=== PATIENT | female | born 1945 | race Caucasian/White ===

== ENCOUNTER 2020-02-21 15:14 | Inpatient (IN) | payer MEDICARE, MEDICAID ==
[2020-02-21] VITALS (7 sets, daily range): BP systolic 134–146; BP diastolic 49–66
[~2020-02-21] VITALS: Ht 157.4 cm; Wt 75.7 kg
[~2020-02-21 15:14] MED LIST: ALEVE220 M1 PO; AMOXICILLIN500 MG PO; ATIVAN1 MG PO; KENALOG0.1% TP; PREDNICOT20 MG PO; PROAIR HFA0.09 MG/AC INH; ROBITUSSIN AC 110 ML PO; Tessalon Perle100 MG PO; VIBRAMYCIN100 MG PO; VISTARIL25 M1 PO
[2020-02-21 15:46] LABS: BASO % 0.6 % (0.0-1.0); EOS # 0.6 10*3/uL (0.0-0.4); EOS % 9.4 % (1.0-4.0); HEMATOCRIT 35.1 % (37.0-47.0); LYMPH % 16.2 % (27.0-41.0); MEAN CELL VOLUME 95.6 fl (81.0-99.0); MEAN CORPUSCULAR HGB 29.4 pg (27.0-31.0); MEAN CORPUSCULAR HGB CONC 30.8 g/dl (33.0-37.0); MEAN PLATELET VOLUME 10.3 fl (9.6-12.3); MONO # 0.6 10*3/uL (0.1-1.0); MONO % 8.7 % (3.0-9.0); NEUT # 4.1 10*3/uL (2.3-7.9); NEUT % 64.8 % (47.0-73.0); PLATELET COUNT AUTOMATED 125 10*3/uL (130-400); RED BLOOD COUNT 3.67 10*6/uL (4.10-5.10); RED CELL DISTRI WIDTH 13.3 % (0-14.5); WHITE BLOOD COUNT 6.3 10*3/uL (4.8-10.8)
[2020-02-21 15:59] LABS: ACT PARTIAL THROMBO TIME 28.9 SECONDS (20.0-32.1)
[2020-02-21 16:07] LABS: ALBUMIN 3.5 gm/dl (3.1-4.5); CREATININE 1.94 mg/dL (0.55-1.02); POTASSIUM 3.8 mmol/L (3.5-5.1); TOTAL PROTEIN 7.8 gm/dL (6.4-8.2)
[2020-02-21 16:09] LABS: TROPONIN I 0.058 ng/ml (<0.045)
--- NOTE | 2020-02-21 21:43 | NUR ---
PT INCONTINENT OF URINE AT THIS TIME. THIS RN CLEANED AND CHANGED PT AND LINENS. REPOSITIONED PT.
--- NOTE | 2020-02-21 23:00 | NUR ---
A 75, admitted to 4E, under the services of DEMETRIUS Randle DO with a diagnosis of ACUTE RESPIRATORY FAILURE. Chief complaint is SHORTNESS OF BREATH. Patient arrived via stretcher from ER. Monitor applied. Initial assessment completed. Vital signs taken and recorded. DEMETRIUS RANDLE DO notified of admission to the unit. Orders received. See assessment for past medical history, medications and allergies. Patient and/or family oriented to unit. visitation policy reviewed. Clothing/patient valuable form completed. MONTANA ZAYAS
--- NOTE | 2020-02-21 23:15 | NUR ---
PATIENT STATING SHE CAN'T BREATHE. PULSE OX 100% ON 4 LITERS. DOES NOT WEAR OXYGEN AT HOME. AUDIBLE RHONCHI AND WHEEZES THROUGHOUT.
--- NOTE | 2020-02-21 23:15 | NUR ---
MEDICATED WITH PRN TYLENOL FOR INCREASED TEMP, HEADACHE, AND BODY ACHES.
[2020-02-21] MEDS ORDERED: FUROSEMIDE20 M1 PO (23:34)
[2020-02-21] MEDS ORDERED: PANTOPRAZOLE SO40 MG PO (23:35)
[2020-02-21] MEDS ORDERED: REQUIP2 MG PO (23:35)
[2020-02-21] MEDS ORDERED: METOPROLOL25 MG PO (23:35)
[2020-02-21] MEDS ORDERED: LEVOTHYROXINE50 MCG PO (23:36)
[2020-02-21] MEDS ORDERED: POTASSIUM CHLO20 ME4 PO (23:39)
[2020-02-21] MEDS ORDERED: OXYBUTYNIN5 MG PO (23:39)
--- NOTE | 2020-02-21 23:44 | NUR ---
DR REYNOLDS AWARE OF LUNG SOUNDS, VITALS, MED REC BEING DONE, AND COMPLAINING OF SHORTNESS OF BREATH.
--- NOTE | 2020-02-21 23:46 | NUR ---
ALSO MADE DR REYNOLDS AWARE OF WOUNDS ON LEGS AND COCCYX
--- NOTE | 2020-02-22 00:13 | NUR ---
MEDICATED WITH ONE TIME ATIVAN PER ORDER
--- NOTE | 2020-02-22 00:15 | NUR ---
MEDICATION EFFECTIVE FOR TEMPERATURE
--- NOTE | 2020-02-22 01:13 | NUR ---
PATIENT SLEEPING WITH EASY RESPIRATIONS. MEDICATION SEEMS EFFECTIVE
[2020-02-22 06:22] LABS: BASO % 0.4 % (0.0-1.0); EOS # 0.1 10*3/uL (0.0-0.4); EOS % 1.6 % (1.0-4.0); HEMATOCRIT 31.5 % (37.0-47.0); LYMPH # 0.5 10*3/uL (1.3-4.4); LYMPH % 9.2 % (27.0-41.0); MEAN CELL VOLUME 95.5 fl (81.0-99.0); MEAN CORPUSCULAR HGB 29.7 pg (27.0-31.0); MEAN CORPUSCULAR HGB CONC 31.1 g/dl (33.0-37.0); MEAN PLATELET VOLUME 10.7 fl (9.6-12.3); MONO # 0.1 10*3/uL (0.1-1.0); MONO % 2.2 % (3.0-9.0); NEUT # 4.3 10*3/uL (2.3-7.9); NEUT % 86.4 % (47.0-73.0); PLATELET COUNT AUTOMATED 120 10*3/uL (130-400); RED CELL DISTRI WIDTH 13.4 % (0-14.5)
[2020-02-22 06:45] LABS: ALBUMIN 3.1 gm/dl (3.1-4.5); CREATININE 2.01 mg/dL (0.55-1.02); TOTAL PROTEIN 7.6 gm/dL (6.4-8.2)
[2020-02-22 07:45] LABS: VITAMIN D, 25-HYDROXY 49.8 ng/mL (30-100)
[2020-02-22 07:46] LABS: FERRITIN 636.7 ng/mL (10.0-291.0)
[2020-02-22 08:00] VITALS: BP 122/50
--- NOTE | 2020-02-22 08:53 | NUR ---
NOTIFIED OF BRADYCARDIA
--- NOTE | 2020-02-22 10:07 | NUR ---
Occupational therapy order and nursing screen received. Will follow up with patient for completion of an OT evaluation. Thank you. Muriel Augustine, OTR/L
[2020-02-22 11:31] LABS: ABG BASE EXCESS 7.7 mmol/L (-2.0-2.0); ARTERIAL BLOOD GAS PH 7.417 (7.35-7.45)
[2020-02-22 12:00] VITALS: BP 128/54
--- NOTE | 2020-02-22 12:26 | NUR ---
Structural Steel Erector in to talk to patient. Patient states lives at home with daughter. There are no steps in the home. Physician: marilin sinclair Pharmacy: [facility] health services: none at present Patient's level of ADLs: MINIMAL ASSIST Patient has working utilities: all working DME: wheelchair, walker Follow-up physician's appointment after d/c: will be made by hospitalist nurse director upon discharge Does patient want to access PORTAL?: no Discharge plan discussed with patient, she states she lives at home with her daughter, she is independent in adls and has recently been using a wheelchair for ambulation, no home oxygen, she states she would like to return home when discharged. discussed with her [facility] and educated her on the services they provide, she was receptive to this, given choice of companies she chose [facility], will send a referral to [facility] for when she is discharged, case management will follow. GREY HICKS
--- NOTE | 2020-02-22 14:59 | NUR ---
Occupational Therapy evaluation completed on four with full evaluation to follow. Recommend occupational therapy per plan of care and SNF upon discharge. Thank you for this referral. Muriel Augustine OTR/L
--- NOTE | 2020-02-22 15:00 | NUR ---
PHYSICAL THERAPY Physical Therapy evaluation completed on 4th floor with full evaluation to follow. Recommend physical therapy per plan of care and SNF upon discharge. Thank you for this referral. Roxi Malik PT
[2020-02-22 16:00] VITALS: BP 108/50; BP 94/49
--- NOTE | 2020-02-22 19:31 | NUR ---
PATIENT MEDICATED WITH TYLENOL FOR C/O PAIN IN LEGS. MOVED FROM CHAIR TO BED. TOLERATED WELL. BED IN LOWEST POSITION, CALL LIGHT IN REACH
[2020-02-22 20:00] VITALS: BP 104/44
[2020-02-23] VITALS: BP 104/44; BP 132/59
[2020-02-23 06:15] LABS: HEMATOCRIT 29.5 % (37.0-47.0); LYMPH # 0.9 10*3/uL (1.3-4.4); LYMPH % 14.8 % (27.0-41.0); MEAN CELL VOLUME 94.2 fl (81.0-99.0); MEAN CORPUSCULAR HGB 29.4 pg (27.0-31.0); MEAN CORPUSCULAR HGB CONC 31.2 g/dl (33.0-37.0); MEAN PLATELET VOLUME 10.8 fl (9.6-12.3); MONO # 0.5 10*3/uL (0.1-1.0); MONO % 8.5 % (3.0-9.0); NEUT # 4.7 10*3/uL (2.3-7.9); NEUT % 76.4 % (47.0-73.0); PLATELET COUNT AUTOMATED 140 10*3/uL (130-400); RED BLOOD COUNT 3.13 10*6/uL (4.10-5.10); RED CELL DISTRI WIDTH 13.3 % (0-14.5); WHITE BLOOD COUNT 6.1 10*3/uL (4.8-10.8)
[2020-02-23 06:22] LABS: CREATININE 2.07 mg/dL (0.55-1.02); POTASSIUM 3.9 mmol/L (3.5-5.1); TOTAL PROTEIN 7.1 gm/dL (6.4-8.2)
--- NOTE | 2020-02-23 07:38 | NUR ---
PHYSICAL THERAPY PT eval and screen received pt has been evaluated and is on caseload thank you Roxi Malik PT
[2020-02-23 08:00] VITALS: BP 102/44; BP 128/82
--- NOTE | 2020-02-23 09:00 | NUR ---
case management talks with patient, she states she will return home when discharged, she is currently on 4l of oxygen, she does not have home oxygen, she also would like [facility] to follow her at home, case management will notify [facility] when patient is discharged
[2020-02-23 12:00] VITALS: BP 115/43
--- NOTE | 2020-02-23 13:21 | NUR ---
OT NOTE Pt was seen this P.M. 1:1 for 30 minute OT session. Upon arrival pt was supine in bed. Pt identified by name and and had complaints of 5/10 B foot pain. Pt transferred supine to sit EOB with Saira for assist with upper body. While sitting EOB requested for pt to venessa B socks and she was unable reporting that she uses a bottle label inspector at home. Pt's socks were donned with maxA. Sit to stand completed from bed level with Saira X 2 and use of w/w for UE support. Challenged pt's static standing tolerance needed for increased I in self care tasks and functional transfers. Pt was able to tolerate aprox 2-3 minutes at a time before sitting due to fatigue. She then completed standing pivot from the EOB to the bedside commode with Saira X 2 and use of w/w. There she transferred on to the bedside commode with CGA and off with Saira x 2. Functional mobility completed from the EOB to the recliner with Saira X 2 and use of w/w, aprox 50% of the way to the chair pt had quick onset of fatigue resulting in modA X 2 and a seated rest break. After her seated rest break functional mobility completed to the recliner with Saira X 2 and use of w/w. While seated in the recliner Pt completed AROM to BUE's over all planes for 1 X 10 to point of tolerance. Pt was left sitting reclined in the recliner with call light in hand, tray table in place, and phone in reach. Continue with rec D/C plan to SNF. KRISHNA Marmolejo
--- NOTE | 2020-02-23 14:39 | NUR ---
PHYSICAL THERAPY Patient presented to therapy in supine in bed with head of bed elevated and bed alarm on. Patient gives informed consent for treatment. Patient was identified by name and on wristband. Patient has a pain level in bilateral feet of 5/10. Patient is on 4 liters of spO2 VIA NASAL CANULA. Patient performed supine to sitting on EOB with MIN A X 1. Patient sat on EOB with SBA. Patient completed sit to stand from EOB with MIN A X 2. Patient stood at Walker with CGA X 2. Patient ambulated with Walker and CGA for 10' x 1 and then had ot sit in chair pulled up behind her because her LEs were weak. Patient sat in chair with MIN A X 1. Patient STS from low chair with MIN A X 1. Patient ambulated the remainder of the distance 8' x 1 with Walker and CGA to the bedside chair where she sat with MIN A X 1. Patient performed seated bilateral LE THER EX x 10 reps each in all planes of movement including LAQs, marches, heel/toe raises hip abduction and pillow sqeezes for strengthening in orde to improve functional mobility. Patient was left in bedside chair with call light within reach, chair alarm tested and attached to patient and LEs in low position. Patient treatment was witnessed by DORI CARBONE. Patient was 1:1 with this WELDING MACHINE OPERATOR ULTRASONIC for 22 minutes total. PPE AND PAPR DONNED AND DOFFED PER PROTOCOL. LEXIE LEE WELDING MACHINE OPERATOR ULTRASONIC
[2020-02-23 16:00] VITALS: BP 122/57
--- NOTE | 2020-02-23 18:23 | NUR ---
PT MEDICATED WITH CEPECOL FOR C/O A COUGH
[2020-02-23 20:00] VITALS: BP 118/49
[2020-02-24] VITALS: BP 115/45
--- NOTE | 2020-02-24 02:14 | NUR ---
NOTIFIED RESPIRATORY OF PATIENT REQUESTING BREATHING TREATMENT
--- NOTE | 2020-02-24 02:31 | NUR ---
PATIENT STATES SHE FEELS BETTER AFTER A BREATHING TREATMENT.
[2020-02-24 06:04] LABS: ALBUMIN 3.2 gm/dl (3.1-4.5); CREATININE 2.23 mg/dL (0.55-1.02); POTASSIUM 3.5 mmol/L (3.5-5.1); TOTAL PROTEIN 7.3 gm/dL (6.4-8.2)
[2020-02-24 06:09] LABS: LYMPH # 0.4 10*3/uL (1.3-4.4); LYMPH % 7.4 % (27.0-41.0); MEAN CELL VOLUME 94.5 fl (81.0-99.0); MEAN CORPUSCULAR HGB 29.3 pg (27.0-31.0); MEAN PLATELET VOLUME 11.2 fl (9.6-12.3); MONO # 0.3 10*3/uL (0.1-1.0); MONO % 4.6 % (3.0-9.0); NEUT % 87.5 % (47.0-73.0); PLATELET COUNT AUTOMATED 176 10*3/uL (130-400); RED BLOOD COUNT 3.28 10*6/uL (4.10-5.10); RED CELL DISTRI WIDTH 13.3 % (0-14.5); WHITE BLOOD COUNT 5.7 10*3/uL (4.8-10.8)
--- NOTE | 2020-02-24 07:31 | NUR ---
INSTRUCTIONAL TECHNOLOGY SPECIALIST NOTIFIED RN HOSPITALIST COORDINATOR CHRISTOPH OF NEEDING A HOME HEALTH ORDER FOR [facility] AND A FACE TO FACE.
--- NOTE | 2020-02-24 09:20 | NUR ---
VALET PARKING ATTENDANT FAXED REFERRAL/FACE TO FACE TO [facility]. WILL NOTIFY THEM WHEN THE PATIENT DISCHARGES.
--- NOTE | 2020-02-24 10:47 | NUR ---
Received call from Jovita at [facility] regarding patient's phone number. Spoke to patient via phone regarding her home phone number. She states she doesn't have a phone at this time as it went through the washer and her daughter's phone is broke. She states he PCP is Dr. Cohen in [place], [place]. Notified Jovita at [facility] of the above.
--- NOTE | 2020-02-24 10:56 | NUR ---
DRESSINGS CHANGED PER PHYSICIAN'S ORDER. PATIENT TOLERATED DRESSING CHANGE WELL. PATIENT DENIED ANY NEEDS BEFORE THIS NURSE LEFT ROOM.
--- NOTE | 2020-02-24 11:42 | NUR ---
DR. MCCLURE'S OFFICE NOTIFIED OF CONSULT.
[2020-02-24 12:00] VITALS: BP 128/64
[2020-02-24 12:39] LABS: POTASSIUM 3.7 mmol/L (3.5-5.1)
--- NOTE | 2020-02-24 13:40 | NUR ---
OT NOTE Pt was seen this P.M. 1:1 for 20 minute OT session. Upon arrival pt was supine in bed. Pt identified by name and and had complaints of 8/10 B foot pain. Pt presented to therapy with continuous 3L-O2 via NC which she remained on throughout the entire session. Pt transferred supine to sit EOB with Saira for assist with upper body. Sit to stand completed from bed level with Saira and use of w/w for UE support. Challenged pt's static standing tolerance needed for incrased I in self care tasks and functional transfers. Pt was able to tolerate aprox 60 seconds at a time before sitting due to fatigue. Standing pivot completed from the EOB to the recliner with Saira and use of w/w, pt had one LOB throughout that required modA to correct and upon arrival to the chair pt sat impulsive before safety with alignment. Once seated in the chair pt completed BUE AROM over all planes for 1 X 10 to increase and restore maximum functional use. Pt was left sitting reclined in the recliner with call light in hand, tray table in place, and phone in reach. Continue with rec D/C plan to SNF. DORI Marmolejo/Gregg
--- NOTE | 2020-02-24 14:40 | NUR ---
PHYSICAL THERAPY Patient presented to therapy in supine in bed with head of bed elevated and no longer in isolation for COVID- 19. Patient gives informed consent for treatment. Patient was identified by name and on wristband. Patient complaints of 8/10 pain in the bilateral feet. Patient performed supine to sitting on EOB with MIN A X 1. Patient sat on EOB with SBA. Patient STS from EOB with MIN A X 1. Patient ambulated 4 ft with Walker and CGA with bilateral LE becoming very weak with gait causing her need to sit on chair that was pulled up behind her. Patient sat in bedside chair and performed bilateral LE ther ex 2 x 10 reps each in all planes of movement for strengthening. Patient attempted 1 sit to stand out of low chair and required MIN A X 1 to assist out of chair. Patient was left in bedside chair with call light within reach and LEs elevated. Patient was 1:1 with this DENTAL TECHNOLOGIST for 20 minutes total. LEXIE LEE DENTAL TECHNOLOGIST
[2020-02-24 16:00] VITALS: BP 131/51
[2020-02-24 20:00] VITALS: BP 122/58
[2020-02-25] VITALS: BP 100/60
--- NOTE | 2020-02-25 | NUR ---
Patient resting quietly with no c/o discomfort. Respirations easy and regular. Vital signs stable. No overt distress. HEAVEN MERLOS
[2020-02-25 06:50] LABS: BASO % 0.1 % (0.0-1.0); HEMATOCRIT 30.5 % (37.0-47.0); LYMPH # 0.8 10*3/uL (1.3-4.4); MEAN CELL VOLUME 94.1 fl (81.0-99.0); MEAN CORPUSCULAR HGB 29.3 pg (27.0-31.0); MEAN CORPUSCULAR HGB CONC 31.1 g/dl (33.0-37.0); MEAN PLATELET VOLUME 10.9 fl (9.6-12.3); MONO # 0.2 10*3/uL (0.1-1.0); MONO % 3.2 % (3.0-9.0); NEUT # 5.8 10*3/uL (2.3-7.9); PLATELET COUNT AUTOMATED 192 10*3/uL (130-400); RED BLOOD COUNT 3.24 10*6/uL (4.10-5.10); RED CELL DISTRI WIDTH 13.4 % (0-14.5); WHITE BLOOD COUNT 6.8 10*3/uL (4.8-10.8)
[2020-02-25 07:16] LABS: CREATININE 2.39 mg/dL (0.55-1.02); POTASSIUM 3.9 mmol/L (3.5-5.1)
--- NOTE | 2020-02-25 07:40 | NUR ---
OCCUPATIONAL THERAPY CO-SIGN I approve of the Occupational Therapy notes written above. FARIDA MIRANDA, OTR/L
[2020-02-25 08:00] VITALS: BP 123/52
--- NOTE | 2020-02-25 10:25 | NUR ---
Pt cleared for therapy by RN. Pt reports c/o fatigue. Pt lying supine with head of bed elevated and bed alarm on. Assist to venessa mask due to limited UE rom. Pt performs supine ankle pumps x 30, SLR 2x10. Transfers supine to sit with Saira and BUE pulling on hand rails. Seated LAQ 2 x 10. Transfers sit to supine without assist. Requires assist with bed adjustments to elavate head due to arm and hand weakness. All needs met and bed alarm on. Kerwin Steele,KAYAKING INSTRUCTOR
--- NOTE | 2020-02-25 10:59 | NUR ---
case management received a message that patient has chosen to go to a short term long-term for 5 days of rehab and 24 hour care prior to returning home, discussed this with patient, she stated she thought about going to a SNF and has decided she is returning home instead. re educated her on the services provided at a SNF and that physical therapy has recommended she go for therapy prior to returning home. again she stated she would be returning home with her daughter and her grandaughter. she would like to have [facility] follow her at home. case management will notify [facility] when patient is discharged
--- NOTE | 2020-02-25 12:35 | NUR ---
OT NOTE Pt was seen this P.M. 1:1 for 25 minute OT session. Upon arrival pt was supine in bed. Pt identified by name and and had complaints of 6.5/10 B feet pain and 10/10 upper back pain while coughing. Pt transferred supine to sit EOB with Saira for assist with upper body. While sitting EOB pt was educated and demonstrated on use of securities supervisor and sock aid. Pt attempted to venessa B socks with use of the equipment and pt was unable resulting in maxA. Pt completed multiple sit to stand transfers from bed level with modA. Challenged pt's static standing tolerance needed for increased I in self care tasks and functional transfers. Pt was able to tolerate aprox 20-25 seconds at a time before sitting due to fatigue. Throughout static standing pt's R knee was blocked due to multiple episodes of R knee buckle. Pt then completed standing pivot from the EOB to the Recliner with modA. While seated pt completed AROM over all planes to BUE's for 1 X 10 to increase and restore maximum functional use. Pt was left sitting reclined in the recliner with call light in hand, tray table in place, and phone in reach. Continue with rec D/C plan to SNF. DORI Marmolejo/Gregg
--- NOTE | 2020-02-25 14:55 | NUR ---
[facility] IS SET TO SEE THE PATIENT ON FRIDAY, UNLESS DISCHARGE IS HELD.
--- NOTE | 2020-02-25 15:21 | NUR ---
PHYSICAL THERAPY CO-SIGN I approve of the Phyical Therapy notes written above. Roxi Malik PT
--- NOTE | 2020-02-25 15:32 | NUR ---
OCCUPATIONAL THERAPY CO-SIGN I approve of the Occupational Therapy notes written above. FARIDA MIRANDA, OTR/L
[2020-02-25 16:00] VITALS: BP 125/41
--- NOTE | 2020-02-25 16:21 | NUR ---
DR. SAENZ NOTIFIED OF PATIENT'S INCONTINENCE. 24 URINE CANCELLED. ORDER FOR STRAIGHT CATH TO COLLECT OTHER URINE SPECIMENS.
--- NOTE | 2020-02-25 16:22 | NUR ---
STRAIGHT CATH UNSUCCESSFUL. CATHETER WILL NOT PROCEED INTO URETHRA. PT STATES PROCEDURE IS VERY PAINFUL. PT STATES SHE WILL DRINK SOME WATER AND THEN TRY TO SIT ON BSC WITH HAT.
[2020-02-25 18:38] LABS: BILIRUBIN Negative (Negative); BLOOD 1+ (Negative); CLARITY Cloudy (Clear); COLOR Yellow (Yellow); GLUCOSE Negative (Negative); KETONE Negative (Negative); LEUKO ESTERASE 1+ (Negative); NITRITE Negative (Negative); UROBILINOGEN 0.2 E.U./dl (0.0-1.0)
[2020-02-25 18:46] LABS: URINE CREATININE RANDOM 90.7 mg/dL
[2020-02-25 18:53] LABS: RBC 0-2 rbc/hpf (0-2)
[2020-02-25 18:54] LABS: BACTERIA 2+
[2020-02-25 20:00] VITALS: BP 125/67
--- NOTE | 2020-02-25 20:00 | NUR ---
PATIENT RESTING IN BED. RESPIRATIONS EASY, NON LABORED. VOICES NO COMPLAINTS. WILL CONTINUE TO MONITOR.
[2020-02-26] VITALS: BP 122/58
--- NOTE | 2020-02-26 04:00 | NUR ---
PATIENT SLEEPING. NO SIGNS OF DISTRESS. WILL CONTINUE TO MONITOR.
[2020-02-26 06:10] LABS: TOTAL PROTEIN, SERUM 6.7 g/dL (6.0-8.5)
[2020-02-26 08:00] VITALS: BP 116/64
[2020-02-26 09:35] LABS: HEMATOCRIT 29.2 % (37.0-47.0); LYMPH # 0.8 10*3/uL (1.3-4.4); LYMPH % 16.1 % (27.0-41.0); MEAN CELL VOLUME 95.1 fl (81.0-99.0); MEAN CORPUSCULAR HGB CONC 31.5 g/dl (33.0-37.0); MEAN PLATELET VOLUME 10.9 fl (9.6-12.3); MONO # 0.2 10*3/uL (0.1-1.0); MONO % 4.4 % (3.0-9.0); NEUT # 3.9 10*3/uL (2.3-7.9); NEUT % 78.9 % (47.0-73.0); PLATELET COUNT AUTOMATED 188 10*3/uL (130-400); RED BLOOD COUNT 3.07 10*6/uL (4.10-5.10); RED CELL DISTRI WIDTH 13.6 % (0-14.5)
[2020-02-26 10:01] LABS: CREATININE 1.92 mg/dL (0.55-1.02); POTASSIUM 4.3 mmol/L (3.5-5.1)
[2020-02-26 12:00] VITALS: BP 129/70
[2020-02-26 16:00] VITALS: BP 141/60
[2020-02-26 20:00] VITALS: BP 142/60
--- NOTE | 2020-02-26 20:57 | NUR ---
TYLENOL GIVEN FOR C/O SACRAL PAIN, PATIENT REPOSITIONED AT THIS TIME. WOUND CARE COMPLETED PER ORDERS. WILL CONT TO LORI.
[2020-02-27] VITALS: BP 135/52
--- NOTE | 2020-02-27 01:45 | NUR ---
PATIENT BATHED AND DIANA CARE PROVIDED. CALL LIGHT IN REACH, BED IN LOW, LOCKED POSITION.
--- NOTE | 2020-02-27 05:00 | NUR ---
Shift chart check completed.
[2020-02-27 06:34] LABS: ALBUMIN 2.8 gm/dl (3.1-4.5); CREATININE 1.87 mg/dL (0.55-1.02); POTASSIUM 4.3 mmol/L (3.5-5.1); TOTAL PROTEIN 6.4 gm/dL (6.4-8.2)
[2020-02-27 08:00] VITALS: BP 139/54
--- NOTE | 2020-02-27 08:32 | NUR ---
24 HR chart check completed.
--- NOTE | 2020-02-27 09:00 | NUR ---
RESTING IN BED WITH NO ACUTE DISTRESS NOTED. RESPIRATIONS EASY. LUNGS DIMINISHED WITH COARSE EXP WHEEZES. PULSE OX 96% RA. NON-PROD COUGH. SCRATCHES NOTED TO BLE. CALL LIGHT WITHIN REACH. NO VOICED COMPLAINTS. BED ALARM MAINTAINED FOR SAFETY
--- NOTE | 2020-02-27 10:19 | NUR ---
REQUESTED AND RECEIVED TYLENOL PER PRN ORDER FOR COMPLAINTS OF BLE PAIN RATING A 6. CALL LIGHT WITHIN REACH. WILL MONITOR
--- NOTE | 2020-02-27 11:00 | NUR ---
STATES RELIEF FROM EARLIER MEDS. CALL LIGHT WITHIN REACH. NO FURTEHR VOICED COMPLAINTS
[2020-02-27 12:00] VITALS: BP 135/55
--- NOTE | 2020-02-27 12:00 | NUR ---
HEEL PROTECTORS PLACED PER ORDER.
[2020-02-27 16:00] VITALS: BP 139/51
--- NOTE | 2020-02-27 17:02 | NUR ---
REQUESTED AND RECEIVED TYLENOL PER PRN ORDER FOR COMPLAINTS OF BLE PAIN RATING A 6. CALL LIGHT WITHIN REACH. WILL MONITOR FOR EFFECTIVENESS
--- NOTE | 2020-02-27 17:30 | NUR ---
PER PATIENT, SHE HAS SPOKE WITH DAUGHTER. ATTEMPTED TO REACH DAUGHTER MORELIA AT [phone] BUT UNABLE. PER PATIENT, DAUGHTER AWARE OF LIKELY D/C 02/27 AND WILL HAVE TRANSPORTATION
--- NOTE | 2020-02-27 17:56 | NUR ---
STATES RELIEF FROM EARLIER MEDS, RESTING IN BED WITH NO ACUTE DISTRESS NOTED. RESPIRATIONS EASY. CALL LIGHT WITHIN REACH. BED ALARM MAINTAINED FOR SAFETY
--- NOTE | 2020-02-27 19:00 | NUR ---
REPORT RECEIVED. PT LYING IN BED. NO COMPLAINTS. CALL LIGHT IN REACH
[2020-02-27 20:13] VITALS: BP 120/58
--- NOTE | 2020-02-27 21:00 | NUR ---
IN TO SEE PT, NO COMPLAINTS. MEDICATIONS GIVEN, TOLERATED WELL. CALL LIGHT IN REACH OF PT
--- NOTE | 2020-02-27 23:12 | NUR ---
TYLENOL GIVEN PER ORDER FOR C/O LEG ACHES. WILL MONITOR
[2020-02-28] VITALS: BP 130/52
--- NOTE | 2020-02-28 | NUR ---
TYLENOL APPEARS EFFECTIVE, PT ASLEEP
--- NOTE | 2020-02-28 01:41 | NUR ---
24 HR chart check completed.
--- NOTE | 2020-02-28 03:00 | NUR ---
PT SLEEPING AT THIS TIME.
--- NOTE | 2020-02-28 05:00 | NUR ---
PT BATHED AND REPOSITIONED AT THIS TIME
[2020-02-28 08:00] VITALS: BP 165/62
--- NOTE | 2020-02-28 08:00 | NUR ---
OT NOTE Pt was seen this A.M. 1:1 for 25 minute OT session. Upon arrival pt was supine in bed. Pt identified by name and and had complaints of 8/10 B foot pain. Pt transferred supine to sit EOB with Saira for assist with upper body. While sitting EOB pt attempted to venessa B socks with use of adaptive equipment and pt was unable due to limited UE ROM and poor faculty head strength resulting in maxA to venessa B socks. While sitting EOB pt completed BUE AROM with AAROM to point of tolerance over all planes for 1 X 15 to increase and restore maximum functional use. Sit to stand completed from EOB with modA X 2 and use of w/w for UE support. Functional mobility (aprox 5 foot) completed from the EOB to the recliner with Saira and use of w/w due to bouts of unsteady stance and retrograde LOB. After a seated rest break pt completed multiple sit to stand transfers from chair level with modA X 2 and use of w/w for UE support. Challenged pt's static standing tolerance needed for increased I in self care tasks and functional transfers. Pt was able to tolerate aprox 60-90 seconds before sitting due to fatigue. While sitting into the chair pt required modA due to sitting without reaching back for the armrest. Pt was left sitting reclined in the recliner with call light in hand, tray table in place, and phone in reach. Continue with rec D/C plan to SNF. KRISHNA Marmolejo
[2020-02-28 08:18] LABS: BASO % 0.1 % (0.0-1.0); EOS % 0.3 % (1.0-4.0); HEMATOCRIT 32.2 % (37.0-47.0); LYMPH # 1.2 10*3/uL (1.3-4.4); LYMPH % 17.9 % (27.0-41.0); MEAN CELL VOLUME 93.9 fl (81.0-99.0); MEAN CORPUSCULAR HGB 29.7 pg (27.0-31.0); MEAN CORPUSCULAR HGB CONC 31.7 g/dl (33.0-37.0); MEAN PLATELET VOLUME 10.8 fl (9.6-12.3); MONO # 0.7 10*3/uL (0.1-1.0); MONO % 10.4 % (3.0-9.0); NEUT # 4.8 10*3/uL (2.3-7.9); PLATELET COUNT AUTOMATED 255 10*3/uL (130-400); RED BLOOD COUNT 3.43 10*6/uL (4.10-5.10); RED CELL DISTRI WIDTH 13.6 % (0-14.5); WHITE BLOOD COUNT 6.9 10*3/uL (4.8-10.8)
[2020-02-28 08:27] LABS: CREATININE 1.83 mg/dL (0.55-1.02); POTASSIUM 4.1 mmol/L (3.5-5.1)
--- NOTE | 2020-02-28 08:55 | NUR ---
PHYSICAL THERAPY Patient presented to therapy in supine in bed with head of bed elevated and bed alarm. Patient reports of pain level in the bilateral feet of 8/10. Patient gives informed consent for treatment. Patient was identified by name and on wristband. Patient B/P was 165/62 in R UE. Patient's O2 sat waas recorded as 99% and pulse at 43. Temp NORMAL. Patient has no IVs, no catheter, and no spO2. Patient performed supine to sitting on EOB with SBA. Patient sat on EOB with SBA. Patient completed STS from EOB with MOD A X 2. Patient ambulated 5' x 1 with Wh Walker and CGA x 2 with verbal cues for locking knees into extension and upright posture to prevent knee buckle. Patient sat in bedside chair with CGA and verbal cues for putting hands back on Walker. Patient performed STS out of bedside chair x 3 SEPERATE TIMES WITH MOD A x 2 AND VERBAL CUES FOR PUSHING off of chair with hands. Patient performed seated bilateral LE ther ex in sitting including LAQs, marches, hip abd, heel/toe raises and pillow sqeezes for strengthening the LEs in order to improve patient's functional mobility. Patient was left in bedside chair with chair alarm on, tray table in front of patient and LEs in low position. Call light left within reach of patient. Patient was 1:1 withh this DREDGING INSPECTOR for 22 minutes total. LEXIE LEE DREDGING INSPECTOR
[2020-02-28] MEDS ORDERED: PREDNISONE10 MG PO ×2 (09:43)
[2020-02-28] MEDS ORDERED: OMNICEF300 MG PO ×2 (09:43)
--- NOTE | 2020-02-28 11:11 | NUR ---
SCALLOP CUTTER NOTIFIED OF DISCHARGE. SCALLOP CUTTER SPOKE WITH JANENE BERNARDO. SCALLOP CUTTER ORGINIALLY SET TRANSPORTATION WITH PATIENTS INSURANCE BASED OFF OF PRIOR PT EVAL. HOWEVER, SCALLOP CUTTER REVIEWED RECENT PT NOTE AND PATIENT HAD A DECLINE IN AMBULATION. SCALLOP CUTTER CANCELLED INSURANCE TRANSPORTATION. SCALLOP CUTTER CONTACTED [facility]. THEY ARE RUNNING BEHIND. SCALLOP CUTTER FAXED DEMOGRAPHICS AND MEDICAL NECESSITY (COMPLETED BY JANENE BERNARDO) TO [facility], THEY WILL CONTACT THIS SCALLOP CUTTER BACK WITH A TIME. JANENE BERNARDO IS AWARE. SCALLOP CUTTER CONTACTED PATIENTS DAUGHTER MORELIA, SHE IS AWARE TRANSPORTATION IS PENDING. WILL CALL HER BACK WITH A CONFIRMED TIME FROM [facility].
--- NOTE | 2020-02-28 13:00 | NUR ---
Discharge instructions reviewed with patient/family. Patient receptive and verbalizes understanding. Follow-up care arranged. Written instructions given to patient/family. SAI LINDSEY
[2020-02-28 16:11] LABS: ALBUMIN 3.4 g/dL (2.9-4.4); ALPHA-1-GLOBULIN 0.3 g/dL (0.0-0.4); ALPHA-2-GLOBULIN 0.8 g/dL (0.4-1.0); BETA GLOBULIN 1.1 g/dL (0.7-1.3); GAMMA GLOBULIN 1.2 g/dL (0.4-1.8); GLOBULIN, TOTAL 3.3 g/dL (2.2-3.9); M-SPIKE 0.4 g/dL (Not Observed)
--- NOTE | 2020-02-29 07:40 | NUR ---
OCCUPATIONAL THERAPY CO-SIGN I approve of the Occupational Therapy notes written above. FARIDA MIRANDA, OTR/L
--- NOTE | 2020-02-29 07:54 | NUR ---
PHYSICAL THERAPY CO-SIGN I approve of the Physical Therapy notes written above. Roxi Malik PT
--- NOTE | 2020-02-29 09:51 | NUR ---
PATIENT IS BEING SEEN TOMORROW BY [facility]. CLAIMS REPRESENTATIVE SPOKE WITH [facility].
--- NOTE | 2020-03-06 13:34 | NUR ---
NORTH RECEIVED EMAIL FROM [facility] STATING THIS PATIENT IS BEING SENT TO ER FOR PLACEMENT. NORTH PRINITED REFERRAL FROM LAST ADMISSION AND SENT IT TO [facility]A [facility]KEON FOR REVIEW.
== END 2020-02-28 13:00 | disposition home or self-care (01) | DRG 177 ==
LOC: ED 15:14 → 4E 18:39 → EDHOLD 18:39 → 5E 19:02 → 4E 22:19
PROVIDERS: Emergency Medicine; Internal Medicine; Internal Medicine Critical Care Medicine; Registered Nurse; Social Worker Clinical; Student in an Organized Health Care Education/Training Program; ADMIT Internal Medicine; ATTEND Internal Medicine
DX: J15.6 Pneumonia due to other Gram-negative bacteria (principal); J96.01 Acute respiratory failure with hypoxia; N17.0 Acute kidney failure with tubular necrosis; J44.1 Chronic obstructive pulmonary disease with (acute) exacerbation; J44.0 Chronic obstructive pulmonary disease with (acute) lower respiratory infection; N12 Tubulo-interstitial nephritis, not specified as acute or chronic; I50.9 Heart failure, unspecified; Z20.828 Contact with and (suspected) exposure to other viral communicable diseases; K21.9 Gastro-esophageal reflux disease without esophagitis; F41.9 Anxiety disorder, unspecified; E66.9 Obesity, unspecified; I34.0 Nonrheumatic mitral (valve) insufficiency; R77.8 Other specified abnormalities of plasma proteins; R73.9 Hyperglycemia, unspecified; D69.6 Thrombocytopenia, unspecified; D64.9 Anemia, unspecified; E03.9 Hypothyroidism, unspecified; J20.9 Acute bronchitis, unspecified; Z87.891 Personal history of nicotine dependence; Z86.73 Personal history of transient ischemic attack (TIA), and cerebral infarction without residual deficits; Z79.899 Other long term (current) drug therapy; Z68.24 Body mass index [BMI] 24.0-24.9, adult; I25.2 Old myocardial infarction

== ENCOUNTER 2020-03-01 15:36 | Emergency (ER) | payer MEDICARE, MEDICAID ==
[~2020-03-01] VITALS: Ht 157.4 cm; Wt 73.5 kg
[~2020-03-01 15:36] MED LIST changes: +FUROSEMIDE20 M1 PO; +LEVOTHYROXINE50 MCG PO; +METOPROLOL25 MG PO; +OMNICEF300 MG PO; +OXYBUTYNIN5 MG PO; +PANTOPRAZOLE SO40 MG PO; +POTASSIUM CHLO20 ME4 PO; +PREDNISONE10 MG PO; +REQUIP2 MG PO
[2020-03-01 16:50] LABS: BASO % 0.2 % (0.0-1.0); EOS % 0.4 % (1.0-4.0); HEMATOCRIT 32.2 % (37.0-47.0); LYMPH # 1.1 10*3/uL (1.3-4.4); LYMPH % 11.3 % (27.0-41.0); MEAN CELL VOLUME 93.3 fl (81.0-99.0); MEAN CORPUSCULAR HGB 29.9 pg (27.0-31.0); MEAN PLATELET VOLUME 10.1 fl (9.6-12.3); MONO # 0.7 10*3/uL (0.1-1.0); MONO % 7.4 % (3.0-9.0); NEUT # 7.7 10*3/uL (2.3-7.9); NEUT % 78.6 % (47.0-73.0); PLATELET COUNT AUTOMATED 285 10*3/uL (130-400); RED BLOOD COUNT 3.45 10*6/uL (4.10-5.10); RED CELL DISTRI WIDTH 13.7 % (0-14.5); WHITE BLOOD COUNT 9.8 10*3/uL (4.8-10.8)
[2020-03-01 17:03] LABS: ACT PARTIAL THROMBO TIME 24.1 SECONDS (20.0-32.1)
[2020-03-01 17:06] LABS: ALBUMIN 3.2 gm/dl (3.1-4.5); CREATININE 1.82 mg/dL (0.55-1.02)
[2020-03-01] MEDS ORDERED: PREDNISONE10 MG PO (17:12)
== END 2020-03-01 17:37 | disposition home or self-care (01) ==
LOC: ED 15:36
PROVIDERS: Family Medicine
DX: J40 Bronchitis, not specified as acute or chronic (principal); Z88.2 Allergy status to sulfonamides; Z88.8 Allergy status to other drugs, medicaments and biological substances; Z79.899 Other long term (current) drug therapy

== ENCOUNTER 2020-03-06 13:33 | Observation (INO) | payer MEDICARE, MEDICAID ==
[~2020-03-06] VITALS: Ht 157.4 cm; Wt 73.9 kg
--- NOTE | 2020-03-06 13:35 | NUR ---
CASE MANAGEMENT ATTEMPTONG TO PLACE PT FROM ER.
[2020-03-06 13:40] VITALS: BP 122/51
--- NOTE | 2020-03-06 13:44 | NUR ---
REFERRAL FROM LAST ADMISSION WAS SENT TO [facility]ON TO REVIEW. PER MIGUEL DAMON, PATIENT WILL NEED NEW COVID TESTING WITH RESULTS AND NEW CLINICAL INFORMATION THIS CLINICAL INFORMATION IS OLD. PATIENT HAS ALREADY MET HER 3RD NIGHT STAY. PATIENT WILL NEED NEW PT ORDERS. PATIENT CAN ADMIT UNDER OBSERVATION. NORTH EXPLAINED THIS TO MILADIS BAHENA.
--- NOTE | 2020-03-06 13:50 | NUR ---
CASE MANAGMENT CALLED STATES PT WOULD HAVE TO BE ADMITTED WITH REPEAT COVID TEST BEFORE PLACEMENT.
[2020-03-06 15:55] LABS: EOS % 0.5 % (1.0-4.0); HEMATOCRIT 31.9 % (37.0-47.0); LYMPH # 0.7 10*3/uL (1.3-4.4); LYMPH % 11.8 % (27.0-41.0); MEAN CORPUSCULAR HGB 29.4 pg (27.0-31.0); MEAN CORPUSCULAR HGB CONC 31.7 g/dl (33.0-37.0); MEAN PLATELET VOLUME 10.9 fl (9.6-12.3); MONO # 0.3 10*3/uL (0.1-1.0); MONO % 5.1 % (3.0-9.0); NEUT % 81.6 % (47.0-73.0); PLATELET COUNT AUTOMATED 198 10*3/uL (130-400); RED BLOOD COUNT 3.43 10*6/uL (4.10-5.10); RED CELL DISTRI WIDTH 13.6 % (0-14.5); WHITE BLOOD COUNT 6.1 10*3/uL (4.8-10.8)
[2020-03-06 16:00] VITALS: BP 125/56
[2020-03-06 16:26] LABS: ALBUMIN 3.3 gm/dl (3.1-4.5); CREATININE 1.9 mg/dL (0.55-1.02); POTASSIUM 3.8 mmol/L (3.5-5.1); TOTAL PROTEIN 6.7 gm/dL (6.4-8.2)
[2020-03-06] MEDS ORDERED: FLUOXETINE HCL20 M2 PO (17:18)
[2020-03-06] MEDS ORDERED: PREDNISONE10 MG PO (17:25)
--- NOTE | 2020-03-06 18:55 | NUR ---
Time: 1599 A 75 year old FEMALE admitted to 5E under services of ASIF MONTEJO DO. Pt. arrived via bed from ER. Chief complaint: CHRONIC PAIN. JACQUELINE VIRAMONTES
[2020-03-06 20:00] VITALS: BP 123/52
--- NOTE | 2020-03-06 20:00 | NUR ---
PATIENT WAS EDUCATED AT THIS TIME THAT SHE IS ON A FLUID RESTRICTION AND THE REASONING WHY. PATIENT VERBALIZED UNDERSTANDING. PATIENT STATES THAT SHE JUST WANTS TO GET BETTER AND GET BACK ON HER FEET. CALL LIGHT LOS REACH, WILL MONITOR
--- NOTE | 2020-03-06 22:30 | NUR ---
PATIENT STATES THAT SHE FEELS PRETTY GOOD AT THIS TIME. STATES THAT HER PAIN AND RESTLESS LEGS ARE ALOT BETTTER AFTER THE SHOT SHE RECIEVED IN THE ER. PATIENT HAS NO COMPLAINTS AT THIS TIME. CALL NYDIA MATIAS, WILL MONITOR
[2020-03-07] VITALS: BP 132/56
--- NOTE | 2020-03-07 02:37 | NUR ---
24 HR chart check completed.
[2020-03-07 06:49] LABS: HEMATOCRIT 30.2 % (37.0-47.0); LYMPH # 0.5 10*3/uL (1.3-4.4); LYMPH % 9.6 % (27.0-41.0); MEAN CELL VOLUME 93.2 fl (81.0-99.0); MEAN CORPUSCULAR HGB 29.6 pg (27.0-31.0); MEAN CORPUSCULAR HGB CONC 31.8 g/dl (33.0-37.0); MEAN PLATELET VOLUME 11.4 fl (9.6-12.3); MONO # 0.2 10*3/uL (0.1-1.0); MONO % 4.5 % (3.0-9.0); NEUT # 4.2 10*3/uL (2.3-7.9); NEUT % 84.7 % (47.0-73.0); PLATELET COUNT AUTOMATED 199 10*3/uL (130-400); RED BLOOD COUNT 3.24 10*6/uL (4.10-5.10); RED CELL DISTRI WIDTH 13.7 % (0-14.5); WHITE BLOOD COUNT 4.9 10*3/uL (4.8-10.8)
[2020-03-07 07:17] LABS: CREATININE 2.02 mg/dL (0.55-1.02); TOTAL PROTEIN 6.2 gm/dL (6.4-8.2)
[2020-03-07 07:25] LABS: THYROID STIM HORMONE (HS) 0.287 uIU/ml (0.358-4.75)
--- NOTE | 2020-03-07 07:39 | NUR ---
Cogeneration Technician in to talk to patient. Patient states lives at home with daughter. There are 6 steps in the home. Physician: marilin sinclair Pharmacy: [facility] health services: [facility] Patient's level of ADLs: MINIMAL ASSIST Patient has working utilities: yes DME: wheelchair, walker Follow-up physician's appointment after d/c: will be made by hospitalist nurse upon discharge Does patient want to access PORTAL?: no Discharge plan : [facility] APPRENTICE SPOKE WITH THIS PATIENT VIA PHONE CALL. PATIENT STATED THAT SHE IS CURRENTLY LIVING AT HOME WITH HER DAUGHTER BUT IS WANTING TO SEEK PLACEMENT AT ONE OF THE [facility]. PATIENT STATED SHE DID NOT WANT TO GO WHERE WAS MENTIONED TO HER IN ER BECAUSE "THEY DON'T TAKE CARE OF THEIR PEOPLE". [facility] APPRENTICE EXPLAINED THAT [facility] IS WHERE THE BEDS ARE AVAILABLE. PATIENT WAS AGREEABLE. REFERRAL WILL BE SENT TO [facility] FOR REVIEW. WILMER SOSA
--- NOTE | 2020-03-07 07:59 | NUR ---
BRATTICE BUILDER FAXED REFERRAL TO [facility]. BRATTICE BUILDER CONTACT PT/OT AND ASKED THAT THEY MOVE THE EVALS TO TOP OF PRIORITY LIST, FARIDA OT STATED THEY WOULD SEE THIS PATIENT FIRST. BRATTICE BUILDER WILL CONTACT MIGUEL DAMON AND EXPLAIN THE CHANGE IN REFERRAL. WILL WAIT FOR PT/OT EVALS TO GO IN AND WILL SEND THEM TO [facility] FOR REVIEW.
[2020-03-07 08:00] VITALS: BP 133/50
--- NOTE | 2020-03-07 08:15 | NUR ---
Occupational Therapy evaluation completed on five with full evaluation to follow. Recommend occupational therapy per plan of care and SNF upon discharge. Thank you for this referral. Muriel Augustine OTR/L
--- NOTE | 2020-03-07 09:16 | NUR ---
PHYSICAL THERAPY Physical therapy evaluation completed. Full details and evaluation to follow. Low complexity skilled PT evaluation performed (54191). PT will work on strength, transfers, gait, balance, safety, bed mobility and AD usage per plan of care. Recommend SNF at discharge.
--- NOTE | 2020-03-07 09:51 | NUR ---
SHOE TREER FAXED PT/OT EVALS TO JAMES FOR REVIEW.
--- NOTE | 2020-03-07 10:45 | NUR ---
OFFICE CLIN ASST SPOKE WITH JAMES, SHE IS REVIEWING REFERRAL STILL. OFFICE CLIN ASST COMPLETED HENS.
--- NOTE | 2020-03-07 11:36 | NUR ---
PATIENT HAS BEEN ACCEPTED TO [facility]. HOSPITALITY ASSOCIATE SPOKE LAWSON PAZ ABOUT DISCHARGING THE PATIENT. HOSPITALITY ASSOCIATE CONTACTED THE PATIENT AND INFORMED HER THAT SHE WOULD BE DISCHARGING TO [facility] TODAY. PATIENT IS AGREEABLE. PATIENT ASKED THAT THIS HOSPITALITY ASSOCIATE CONTACT HER DAUGHTER AND EXPLAIN THIS TO HER. HOSPITALITY ASSOCIATE ATTEMPTED TO CALL [facility]. HOSPITALITY ASSOCIATE LEFT MESSAGE FOR PATIENTS DAUGHTER MORELIA EXPLAINING ACCEPTANCE AND THAT THIS HOSPITALITY ASSOCIATE WOULD CALL HER BACK WITH A TRANSPORT TIME.
[2020-03-07] MEDS ORDERED: LASIX40 MG PO (12:15)
--- NOTE | 2020-03-07 12:25 | NUR ---
SUPERVISOR CARPENTERS NOTIFIED OF PATIENT DISCHARGE. SUPERVISOR CARPENTERS SPOKE WITH RN ALONSO. SUPERVISOR CARPENTERS REACHED OUT TO [facility] TO ARRANGE A 2PM TRANSPORT. SUPERVISOR CARPENTERS NOTIFIED MILADIS MONTEZMY AND THE PATIENT OF DISCHARGE TIME. SUPERVISOR CARPENTERS LEFT MESSAGES ON BOTH PATIENTS BROTHER SANDRA AND PATIENTS DAUGHTER MORELIA VOICEMAILS EXPLAINING DISCHARGE/TRANSPORT TIME. SUPERVISOR CARPENTERS NOTIFIED [facility] OF TRANSPORT TIME AND WILL FAX DISCHARGE ORDERS TO HER.
--- NOTE | 2020-03-07 14:24 | NUR ---
PT DISCHARGED TO [facility]. REPORT CALLED TO RECEIVING RN. PT IV SITE REMOVED, HEMOSTASIS OBTAINED. SITE SECURED W/ 2X2 AND TAPE. MONITOR REMOVED. DRESSING APPLIED TO RIGHT BUTTOCK. PT VERBALIZES UNDERSTANDING OF DISCHARGE INSTRUCTIONS.
--- NOTE | 2020-03-08 07:52 | NUR ---
PHYSICAL THERAPY CO-SIGN I approve of the Physical Therapy notes written above. EARNEST SANCHES PT,DPT
== END 2020-03-07 14:48 ==
LOC: ED 13:33 → EDHOLD 14:43 → 5E 15:02
PROVIDERS: Internal Medicine; ADMIT Family Medicine; ATTEND Family Medicine
DX: R53.1 Weakness (principal); F41.9 Anxiety disorder, unspecified; G89.29 Other chronic pain; K21.9 Gastro-esophageal reflux disease without esophagitis; N18.30 Chronic kidney disease, stage 3 unspecified; D63.1 Anemia in chronic kidney disease; R42 Dizziness and giddiness; I50.31 Acute diastolic (congestive) heart failure; R00.1 Bradycardia, unspecified; M19.90 Unspecified osteoarthritis, unspecified site; M54.9 Dorsalgia, unspecified; R73.9 Hyperglycemia, unspecified; E83.41 Hypermagnesemia; I95.9 Hypotension, unspecified; Z86.73 Personal history of transient ischemic attack (TIA), and cerebral infarction without residual deficits; Z78.9 Other specified health status; Z20.828 Contact with and (suspected) exposure to other viral communicable diseases; Z98.890 Other specified postprocedural states

== ENCOUNTER 2020-03-18 09:25 | Emergency (ER) | payer MEDICARE ==
[~2020-03-18] VITALS: Ht 157.4 cm; Wt 73.5 kg
[~2020-03-18 09:25] MED LIST changes: +FLUOXETINE HCL20 M2 PO; +LASIX40 MG PO
[2020-03-18 10:16] LABS: ABG BASE EXCESS 4.2 mmol/L (-2.0-2.0); ARTERIAL BLOOD GAS PH 7.48 (7.35-7.45)
[2020-03-18 10:17] LABS: BASO % 0.3 % (0.0-1.0); EOS # 0.2 10*3/uL (0.0-0.4); EOS % 4.6 % (1.0-4.0); LYMPH % 31.4 % (27.0-41.0); MEAN CELL VOLUME 93.8 fl (81.0-99.0); MEAN CORPUSCULAR HGB 29.4 pg (27.0-31.0); MEAN CORPUSCULAR HGB CONC 31.3 g/dl (33.0-37.0); MEAN PLATELET VOLUME 9.4 fl (9.6-12.3); MONO # 0.4 10*3/uL (0.1-1.0); MONO % 11.3 % (3.0-9.0); NEUT # 1.7 10*3/uL (2.3-7.9); NEUT % 52.1 % (47.0-73.0); PLATELET COUNT AUTOMATED 119 10*3/uL (130-400); RED CELL DISTRI WIDTH 13.3 % (0-14.5); WHITE BLOOD COUNT 3.3 10*3/uL (4.8-10.8)
[2020-03-18 10:31] LABS: ACT PARTIAL THROMBO TIME 26.6 SECONDS (20.0-32.1)
[2020-03-18 10:32] LABS: ALBUMIN 2.9 gm/dl (3.1-4.5); CREATININE 2.27 mg/dL (0.55-1.02); POTASSIUM 3.4 mmol/L (3.5-5.1); TOTAL PROTEIN 6.6 gm/dL (6.4-8.2)
[2020-03-18 10:33] LABS: TROPONIN I 0.035 ng/ml (<0.045)
== END 2020-03-18 14:03 | disposition home or self-care (01) ==
LOC: ED 09:25
PROVIDERS: Emergency Medicine
DX: U07.1 COVID-19 (principal); K21.9 Gastro-esophageal reflux disease without esophagitis; N18.30 Chronic kidney disease, stage 3 unspecified; I13.0 Hypertensive heart and chronic kidney disease with heart failure and stage 1 through stage 4 chronic kidney disease, or unspecified chronic kidney disease; Z88.2 Allergy status to sulfonamides; Z79.899 Other long term (current) drug therapy; Z86.73 Personal history of transient ischemic attack (TIA), and cerebral infarction without residual deficits; Z87.891 Personal history of nicotine dependence

== ENCOUNTER 2020-07-06 14:46 | Inpatient (IN) | payer MEDICARE, MEDICAID ==
[~2020-07-06] VITALS: Ht 157.5 cm; Wt 76.9 kg
[~2020-07-06 14:46] MED LIST changes: +FLUOXETINE HCL10 MG PO; -FLUOXETINE HCL20 M2 PO; +NAPROXEN375 MG PO
[2020-07-06 14:55] VITALS: BP 90/40
[2020-07-06 15:14] LABS: BASO % 0.3 % (0.0-1.0); EOS # 0.3 10*3/uL (0.0-0.4); EOS % 3.7 % (1.0-4.0); HEMATOCRIT 28.5 % (37.0-47.0); LYMPH % 13.2 % (27.0-41.0); MEAN CELL VOLUME 99.7 fl (81.0-99.0); MEAN CORPUSCULAR HGB 31.1 pg (27.0-31.0); MEAN CORPUSCULAR HGB CONC 31.2 g/dl (33.0-37.0); MEAN PLATELET VOLUME 9.6 fl (9.6-12.3); MONO # 0.7 10*3/uL (0.1-1.0); MONO % 8.6 % (3.0-9.0); NEUT # 5.6 10*3/uL (2.3-7.9); NEUT % 73.9 % (47.0-73.0); PLATELET COUNT AUTOMATED 182 10*3/uL (130-400); RED BLOOD COUNT 2.86 10*6/uL (4.10-5.10); RED CELL DISTRI WIDTH 12.6 % (0-14.5); WHITE BLOOD COUNT 7.6 10*3/uL (4.8-10.8)
[2020-07-06 15:25] LABS: ACT PARTIAL THROMBO TIME 26.5 SECONDS (20.0-32.1)
[2020-07-06 15:27] LABS: ALBUMIN 3.3 gm/dl (3.1-4.5); ALKALINE PHOSPHATASE 78 U/L (45-117); BUN 61 mg/dl (7-24); CHLORIDE 107 mmol/L (98-107); CREATININE 3.51 mg/dL (0.55-1.02); LIPASE 57 U/L (73-393); POTASSIUM 5.8 mmol/L (3.5-5.1); SGOT/AST 6 IU/L (3-35); SGPT/ALT 9 U/L (12-78); SODIUM 140 mmol/L (136-145); TOTAL PROTEIN 7.1 gm/dL (6.4-8.2)
[2020-07-06 15:31] LABS: TROPONIN I < 0.015 ng/ml (<0.045)
[2020-07-06 16:15] LABS: BILIRUBIN Negative (Negative); BLOOD 2+ (Negative); CLARITY Turbid (Clear); COLOR Yellow (Yellow); GLUCOSE Negative (Negative); KETONE Trace (Negative); LEUKO ESTERASE 3+ (Negative); NITRITE Negative (Negative); SPECIFIC GRAVITY 1.015 (1.001-1.030); UROBILINOGEN 0.2 E.U./dl (0.0-1.0)
[2020-07-06 16:29] LABS: WBC TNTC wbc/hpf (0-5)
[2020-07-06 16:51] VITALS: BP 99/61
[2020-07-06 17:21] VITALS: BP 100/54
[2020-07-06 17:50] VITALS: BP 102/40
[2020-07-06] MEDS ORDERED: BACLOFEN5 MG PO (18:29)
[2020-07-06] MEDS ORDERED: FERROUS SULFAT324 M2 PO (18:32)
[2020-07-06] MEDS ORDERED: LASIX20 MG PO ×2 (18:34→18:35)
[2020-07-06] MEDS ORDERED: KLOR-CON 1010 ME1 PO (18:37)
[2020-07-06] MEDS ORDERED: ULTRAM50 MG PO (18:39)
[2020-07-06] MEDS ORDERED: TYLENOL EXTRA500 M2 PO ×2 (18:41)
[2020-07-06] MEDS ORDERED: PROAIR RESPICL90 MCG INH (18:45)
[2020-07-06] MEDS ORDERED: SALINE NASAL SP88 ML NAS (18:46)
[2020-07-06] MEDS ORDERED: GERI-TUSSI100 MG/5 M PO (18:48)
[2020-07-06] MEDS ORDERED: VISTARIL50 MG PO (18:49)
[2020-07-06] MEDS ORDERED: ZOFRAN4 MG PO (18:50)
[2020-07-06 20:00] VITALS: BP 96/41
[2020-07-07] VITALS (7 sets, daily range): BP systolic 96–111; BP diastolic 32–58
[2020-07-07 06:19] LABS: BASO % 0.3 % (0.0-1.0); EOS # 0.1 10*3/uL (0.0-0.4); EOS % 1.7 % (1.0-4.0); HEMATOCRIT 26.8 % (37.0-47.0); LYMPH # 0.9 10*3/uL (1.3-4.4); LYMPH % 12.5 % (27.0-41.0); MEAN CELL VOLUME 100.8 fl (81.0-99.0); MEAN CORPUSCULAR HGB 30.5 pg (27.0-31.0); MEAN CORPUSCULAR HGB CONC 30.2 g/dl (33.0-37.0); MONO # 0.7 10*3/uL (0.1-1.0); MONO % 10.6 % (3.0-9.0); NEUT # 5.1 10*3/uL (2.3-7.9); NEUT % 74.6 % (47.0-73.0); PLATELET COUNT AUTOMATED 175 10*3/uL (130-400); RED BLOOD COUNT 2.66 10*6/uL (4.10-5.10); RED CELL DISTRI WIDTH 12.7 % (0-14.5); WHITE BLOOD COUNT 6.9 10*3/uL (4.8-10.8)
[2020-07-07 06:37] LABS: ALBUMIN 2.8 gm/dl (3.1-4.5); CREATININE 3.56 mg/dL (0.55-1.02)
[2020-07-07 06:44] LABS: FREE T4 1.19 ng/dl (0.76-1.46); POTASSIUM 4.7 mmol/L (3.5-5.1); THYROID STIM HORMONE (HS) 1.82 uIU/ml (0.358-4.75); TOTAL PROTEIN 6.5 gm/dL (6.4-8.2)
[2020-07-07 11:00] LABS: VITAMIN D, 25-HYDROXY 33.1 ng/mL (30-100)
[2020-07-08] VITALS: BP 122/52
[2020-07-08 06:30] LABS: BASO % 0.2 % (0.0-1.0); EOS # 0.2 10*3/uL (0.0-0.4); EOS % 3.1 % (1.0-4.0); HEMATOCRIT 27.1 % (37.0-47.0); LYMPH # 1.2 10*3/uL (1.3-4.4); LYMPH % 24.2 % (27.0-41.0); MEAN CELL VOLUME 99.3 fl (81.0-99.0); MEAN CORPUSCULAR HGB 30.4 pg (27.0-31.0); MEAN CORPUSCULAR HGB CONC 30.6 g/dl (33.0-37.0); MEAN PLATELET VOLUME 9.7 fl (9.6-12.3); MONO # 0.5 10*3/uL (0.1-1.0); MONO % 10.1 % (3.0-9.0); NEUT % 62.2 % (47.0-73.0); PLATELET COUNT AUTOMATED 177 10*3/uL (130-400); RED BLOOD COUNT 2.73 10*6/uL (4.10-5.10); RED CELL DISTRI WIDTH 12.7 % (0-14.5); WHITE BLOOD COUNT 4.8 10*3/uL (4.8-10.8)
[2020-07-08 06:51] LABS: CREATININE 3.05 mg/dL (0.55-1.02); POTASSIUM 4.8 mmol/L (3.5-5.1)
[2020-07-08 08:00] VITALS: BP 125/66
[2020-07-08 12:00] VITALS: BP 122/58
[2020-07-08 16:00] VITALS: BP 106/46
[2020-07-08 20:00] VITALS: BP 98/58
[2020-07-09] VITALS: BP 113/49
[2020-07-09 06:37] LABS: CREATININE 2.62 mg/dL (0.55-1.02); POTASSIUM 5.1 mmol/L (3.5-5.1)
[2020-07-09 08:00] VITALS: BP 92/47
[2020-07-09 12:00] VITALS: BP 106/57
[2020-07-09 16:00] VITALS: BP 92/46
[2020-07-09 20:00] VITALS: BP 93/52
[2020-07-10] VITALS: BP 102/45
[2020-07-10 08:00] VITALS: BP 97/42
[2020-07-10 09:32] LABS: CREATININE 2.42 mg/dL (0.55-1.02); POTASSIUM 4.5 mmol/L (3.5-5.1)
[2020-07-10 12:00] VITALS: BP 102/41
== END 2020-07-10 15:04 | DRG 291 ==
LOC: ED 14:46 → EDHOLD 16:41 → 5E 16:41
PROVIDERS: Emergency Medicine; Family Medicine; Hospitalist; Internal Medicine; ADMIT Family Medicine; ATTEND Family Medicine
DX: I50.33 Acute on chronic diastolic (congestive) heart failure (principal); N17.0 Acute kidney failure with tubular necrosis; E44.0 Moderate protein-calorie malnutrition; N30.00 Acute cystitis without hematuria; Z20.822 Contact with and (suspected) exposure to COVID-19; D53.9 Nutritional anemia, unspecified; E83.41 Hypermagnesemia; I95.9 Hypotension, unspecified; Z66 Do not resuscitate; N18.30 Chronic kidney disease, stage 3 unspecified; Z68.31 Body mass index [BMI] 31.0-31.9, adult; R73.9 Hyperglycemia, unspecified; E87.5 Hyperkalemia; R00.1 Bradycardia, unspecified; Z51.5 Encounter for palliative care; K21.9 Gastro-esophageal reflux disease without esophagitis; Z82.3 Family history of stroke; Z88.2 Allergy status to sulfonamides; Z88.8 Allergy status to other drugs, medicaments and biological substances; Z87.891 Personal history of nicotine dependence; Z86.73 Personal history of transient ischemic attack (TIA), and cerebral infarction without residual deficits; Z79.1 Long term (current) use of non-steroidal anti-inflammatories (NSAID); Z79.899 Other long term (current) drug therapy

== ENCOUNTER 2020-11-19 08:22 | Inpatient (IN) | payer MEDICARE, MEDICAID ==
[~2020-11-19] VITALS: Ht 157.4 cm; Wt 94.8 kg
[2020-11-19] VITALS (8 sets, daily range): BP systolic 107–131; BP diastolic 44–70
[~2020-11-19 08:22] MED LIST changes: +BACLOFEN5 MG PO; +FERROUS SULFAT324 M2 PO; +GERI-TUSSI100 MG/5 M PO; +KLOR-CON 1010 ME1 PO; +LASIX20 MG PO; +PROAIR RESPICL90 MCG INH; +SALINE NASAL SP88 ML NAS; +TYLENOL EXTRA500 M2 PO; +ULTRAM50 MG PO; +VISTARIL50 MG PO; +ZOFRAN4 MG PO
[2020-11-19 09:30] LABS: BASO % 0.2 % (0.0-1.0); EOS # 0.1 10*3/uL (0.0-0.4); EOS % 2.1 % (1.0-4.0); HEMATOCRIT 25.6 % (37.0-47.0); LYMPH # 1.2 10*3/uL (1.3-4.4); LYMPH % 19.3 % (27.0-41.0); MEAN CELL VOLUME 99.2 fl (81.0-99.0); MEAN CORPUSCULAR HGB CONC 31.3 g/dl (33.0-37.0); MEAN PLATELET VOLUME 9.5 fl (9.6-12.3); MONO # 0.6 10*3/uL (0.1-1.0); NEUT # 4.4 10*3/uL (2.3-7.9); NEUT % 68.9 % (47.0-73.0); PLATELET COUNT AUTOMATED 236 10*3/uL (130-400); RED BLOOD COUNT 2.58 10*6/uL (4.10-5.10); RED CELL DISTRI WIDTH 12.9 % (0-14.5); WHITE BLOOD COUNT 6.3 10*3/uL (4.8-10.8)
[2020-11-19 09:46] LABS: ALBUMIN 3.1 gm/dl (3.1-4.5); ALKALINE PHOSPHATASE 73 U/L (45-117); BUN 60 mg/dl (7-24); CHLORIDE 105 mmol/L (98-107); POTASSIUM 3.9 mmol/L (3.5-5.1); SGOT/AST 18 IU/L (3-35); SGPT/ALT 26 U/L (12-78); SODIUM 139 mmol/L (136-145); TOTAL PROTEIN 6.7 gm/dL (6.4-8.2)
[2020-11-19 09:50] LABS: TROPONIN I < 0.015 ng/ml (<0.045)
[2020-11-19 10:56] LABS: BILIRUBIN Negative (Negative); BLOOD Negative (Negative); CLARITY Clear (Clear); COLOR Yellow (Yellow); GLUCOSE Negative (Negative); KETONE Negative (Negative); LEUKO ESTERASE Trace (Negative); NITRITE Negative (Negative); SPECIFIC GRAVITY 1.015 (1.001-1.030); UROBILINOGEN 0.2 E.U./dl (0.0-1.0)
[2020-11-19 11:10] LABS: BACTERIA TRACE
[2020-11-19 11:15] LABS: ABG BASE EXCESS 5.5 mmol/L (-2.0-2.0); ARTERIAL BLOOD GAS PH 7.407 (7.35-7.45); ARTERIAL BLOOD GAS PO2 127.2 (80-90)
[2020-11-20] VITALS: BP 120/49
[2020-11-20 06:07] LABS: EOS # 0.1 10*3/uL (0.0-0.4); EOS % 2.5 % (1.0-4.0); HEMATOCRIT 25.7 % (37.0-47.0); LYMPH # 1.1 10*3/uL (1.3-4.4); LYMPH % 20.8 % (27.0-41.0); MEAN CELL VOLUME 97.7 fl (81.0-99.0); MEAN CORPUSCULAR HGB 30.8 pg (27.0-31.0); MEAN CORPUSCULAR HGB CONC 31.5 g/dl (33.0-37.0); MEAN PLATELET VOLUME 9.7 fl (9.6-12.3); MONO # 0.6 10*3/uL (0.1-1.0); MONO % 12.2 % (3.0-9.0); NEUT # 3.4 10*3/uL (2.3-7.9); NEUT % 63.9 % (47.0-73.0); PLATELET COUNT AUTOMATED 213 10*3/uL (130-400); RED BLOOD COUNT 2.63 10*6/uL (4.10-5.10); RED CELL DISTRI WIDTH 12.8 % (0-14.5); WHITE BLOOD COUNT 5.3 10*3/uL (4.8-10.8)
[2020-11-20 06:37] LABS: ALBUMIN 2.9 gm/dl (3.1-4.5); CREATININE 1.85 mg/dL (0.55-1.02); POTASSIUM 3.7 mmol/L (3.5-5.1)
[2020-11-20 06:39] LABS: TOTAL PROTEIN 6.4 gm/dL (6.4-8.2)
[2020-11-20 07:58] VITALS: BP 123/52
[2020-11-20 12:00] VITALS: BP 112/82
[2020-11-20 16:00] VITALS: BP 115/57
[2020-11-20 20:00] VITALS: BP 141/42
[2020-11-21] VITALS: BP 116/58
[2020-11-21 06:41] LABS: EOS # 0.1 10*3/uL (0.0-0.4); EOS % 2.1 % (1.0-4.0); HEMATOCRIT 24.8 % (37.0-47.0); LYMPH # 1.3 10*3/uL (1.3-4.4); LYMPH % 23.4 % (27.0-41.0); MEAN CELL VOLUME 99.6 fl (81.0-99.0); MEAN CORPUSCULAR HGB 31.3 pg (27.0-31.0); MEAN CORPUSCULAR HGB CONC 31.5 g/dl (33.0-37.0); MEAN PLATELET VOLUME 9.8 fl (9.6-12.3); MONO # 0.8 10*3/uL (0.1-1.0); MONO % 14.6 % (3.0-9.0); NEUT # 3.2 10*3/uL (2.3-7.9); NEUT % 59.2 % (47.0-73.0); PLATELET COUNT AUTOMATED 201 10*3/uL (130-400); RED BLOOD COUNT 2.49 10*6/uL (4.10-5.10); RED CELL DISTRI WIDTH 12.9 % (0-14.5); WHITE BLOOD COUNT 5.4 10*3/uL (4.8-10.8)
[2020-11-21 06:56] LABS: CREATININE 1.98 mg/dL (0.55-1.02); POTASSIUM 3.9 mmol/L (3.5-5.1)
[2020-11-21 08:00] VITALS: BP 123/60
[2020-11-21 12:00] VITALS: BP 121/74
[2020-11-21 16:14] VITALS: BP 121/74
[2020-11-21 18:13] LABS: URINE CREATININE RANDOM 22.9 mg/dL
[2020-11-21 20:00] VITALS: BP 107/46
[2020-11-22 06:31] LABS: EOS # 0.1 10*3/uL (0.0-0.4); EOS % 1.9 % (1.0-4.0); HEMATOCRIT 23.8 % (37.0-47.0); LYMPH % 22.1 % (27.0-41.0); MEAN CELL VOLUME 99.6 fl (81.0-99.0); MEAN CORPUSCULAR HGB CONC 31.1 g/dl (33.0-37.0); MEAN PLATELET VOLUME 9.3 fl (9.6-12.3); MONO # 0.6 10*3/uL (0.1-1.0); MONO % 13.4 % (3.0-9.0); NEUT # 2.9 10*3/uL (2.3-7.9); PLATELET COUNT AUTOMATED 187 10*3/uL (130-400); RED BLOOD COUNT 2.39 10*6/uL (4.10-5.10); RED CELL DISTRI WIDTH 12.8 % (0-14.5); WHITE BLOOD COUNT 4.7 10*3/uL (4.8-10.8)
[2020-11-22 06:38] LABS: CREATININE 1.79 mg/dL (0.55-1.02); POTASSIUM 3.4 mmol/L (3.5-5.1)
[2020-11-22 08:00] VITALS: BP 109/52
[2020-11-22 12:00] VITALS: BP 114/54
[2020-11-22 16:00] VITALS: BP 114/54
[2020-11-22 20:00] VITALS: BP 119/60
[2020-11-23] VITALS: BP 121/51
[2020-11-23 07:03] LABS: BASO % 0.2 % (0.0-1.0); EOS # 0.1 10*3/uL (0.0-0.4); EOS % 2.3 % (1.0-4.0); HEMATOCRIT 24.4 % (37.0-47.0); LYMPH # 0.9 10*3/uL (1.3-4.4); LYMPH % 16.9 % (27.0-41.0); MEAN CELL VOLUME 100.8 fl (81.0-99.0); MEAN CORPUSCULAR HGB CONC 30.7 g/dl (33.0-37.0); MEAN PLATELET VOLUME 9.7 fl (9.6-12.3); MONO # 0.8 10*3/uL (0.1-1.0); MONO % 14.6 % (3.0-9.0); NEUT # 3.5 10*3/uL (2.3-7.9); NEUT % 65.6 % (47.0-73.0); PLATELET COUNT AUTOMATED 196 10*3/uL (130-400); RED BLOOD COUNT 2.42 10*6/uL (4.10-5.10); RED CELL DISTRI WIDTH 12.8 % (0-14.5); WHITE BLOOD COUNT 5.3 10*3/uL (4.8-10.8)
[2020-11-23 07:20] LABS: POTASSIUM 3.5 mmol/L (3.5-5.1)
[2020-11-23 07:24] LABS: CREATININE 1.77 mg/dL (0.55-1.02)
[2020-11-23 08:00] VITALS: BP 122/53
[2020-11-23 12:00] VITALS: BP 120/69
[2020-11-23 16:00] VITALS: BP 112/58
[2020-11-23 20:00] VITALS: BP 139/69
[2020-11-24] VITALS (7 sets, daily range): BP systolic 125–187; BP diastolic 50–85
[2020-11-24 06:39] LABS: BASO % 0.2 % (0.0-1.0); EOS # 0.1 10*3/uL (0.0-0.4); EOS % 2.3 % (1.0-4.0); HEMATOCRIT 25.5 % (37.0-47.0); LYMPH # 0.7 10*3/uL (1.3-4.4); LYMPH % 14.6 % (27.0-41.0); MEAN CELL VOLUME 98.8 fl (81.0-99.0); MEAN CORPUSCULAR HGB 31.4 pg (27.0-31.0); MEAN CORPUSCULAR HGB CONC 31.8 g/dl (33.0-37.0); MEAN PLATELET VOLUME 9.5 fl (9.6-12.3); MONO # 0.7 10*3/uL (0.1-1.0); MONO % 15.2 % (3.0-9.0); NEUT # 3.2 10*3/uL (2.3-7.9); NEUT % 67.1 % (47.0-73.0); PLATELET COUNT AUTOMATED 214 10*3/uL (130-400); RED BLOOD COUNT 2.58 10*6/uL (4.10-5.10); RED CELL DISTRI WIDTH 12.6 % (0-14.5); WHITE BLOOD COUNT 4.8 10*3/uL (4.8-10.8)
[2020-11-24 06:58] LABS: CREATININE 1.77 mg/dL (0.55-1.02); POTASSIUM 3.4 mmol/L (3.5-5.1)
[2020-11-24 20:58] LABS: ABG BASE EXCESS 4.6 mmol/L (-2.0-2.0); ARTERIAL BLOOD GAS PH 7.44 (7.35-7.45); ARTERIAL BLOOD GAS PO2 92.4 (80-90)
[2020-11-24 21:03] LABS: BASO % 0.2 % (0.0-1.0); EOS # 0.1 10*3/uL (0.0-0.4); EOS % 1.4 % (1.0-4.0); HEMATOCRIT 31.6 % (37.0-47.0); LYMPH # 1.3 10*3/uL (1.3-4.4); LYMPH % 28.9 % (27.0-41.0); MEAN CELL VOLUME 96.9 fl (81.0-99.0); MEAN CORPUSCULAR HGB 31.3 pg (27.0-31.0); MEAN CORPUSCULAR HGB CONC 32.3 g/dl (33.0-37.0); MEAN PLATELET VOLUME 8.9 fl (9.6-12.3); MONO # 0.2 10*3/uL (0.1-1.0); MONO % 4.4 % (3.0-9.0); NEUT # 2.8 10*3/uL (2.3-7.9); NEUT % 64.9 % (47.0-73.0); PLATELET COUNT AUTOMATED 233 10*3/uL (130-400); RED BLOOD COUNT 3.26 10*6/uL (4.10-5.10); RED CELL DISTRI WIDTH 12.4 % (0-14.5); WHITE BLOOD COUNT 4.3 10*3/uL (4.8-10.8)
[2020-11-24 21:20] LABS: ALBUMIN 2.2 gm/dl (3.1-4.5); CREATININE 1.75 mg/dL (0.55-1.02); POTASSIUM 3.2 mmol/L (3.5-5.1)
[2020-11-25] VITALS (71 sets, daily range): BP systolic 70–136; BP diastolic 30–68
[2020-11-25 06:13] LABS: MEAN CELL VOLUME 98.9 fl (81.0-99.0); MEAN CORPUSCULAR HGB 31.1 pg (27.0-31.0); MEAN CORPUSCULAR HGB CONC 31.5 g/dl (33.0-37.0); MEAN PLATELET VOLUME 9.9 fl (9.6-12.3); PLATELET COUNT AUTOMATED 263 10*3/uL (130-400); RED BLOOD COUNT 2.73 10*6/uL (4.10-5.10); RED CELL DISTRI WIDTH 12.7 % (0-14.5); WHITE BLOOD COUNT 8.4 10*3/uL (4.8-10.8)
[2020-11-25 06:29] LABS: CREATININE 2.32 mg/dL (0.55-1.02)
[2020-11-25 06:53] LABS: POTASSIUM 4.2 mmol/L (3.5-5.1)
[2020-11-25 07:43] LABS: PLATELET SUFFICIENCY NORMAL (NORMAL); TOTAL CELLS COUNTED 100 #CELLS
[2020-11-26] VITALS (102 sets, daily range): BP systolic 82–150; BP diastolic 30–502
[2020-11-26 05:57] LABS: ALBUMIN 1.7 gm/dl (3.1-4.5); CREATININE 2.35 mg/dL (0.55-1.02); POTASSIUM 3.5 mmol/L (3.5-5.1); TOTAL PROTEIN 5.3 gm/dL (6.4-8.2)
[2020-11-26 06:10] LABS: HEMATOCRIT 22.7 % (37.0-47.0); MEAN CELL VOLUME 98.7 fl (81.0-99.0); MEAN CORPUSCULAR HGB 30.9 pg (27.0-31.0); MEAN CORPUSCULAR HGB CONC 31.3 g/dl (33.0-37.0); MEAN PLATELET VOLUME 9.6 fl (9.6-12.3); PLATELET COUNT AUTOMATED 294 10*3/uL (130-400); WHITE BLOOD COUNT 12.6 10*3/uL (4.8-10.8)
[2020-11-26 08:49] LABS: PLATELET SUFFICIENCY NORMAL (NORMAL); TOTAL CELLS COUNTED 100 #CELLS
[2020-11-26 10:14] LABS: BASO % 0.2 % (0.0-1.0); EOS # 0.1 10*3/uL (0.0-0.4); EOS % 0.5 % (1.0-4.0); HEMATOCRIT 21.7 % (37.0-47.0); LYMPH # 1.1 10*3/uL (1.3-4.4); LYMPH % 8.2 % (27.0-41.0); MEAN CELL VOLUME 97.3 fl (81.0-99.0); MEAN CORPUSCULAR HGB 31.4 pg (27.0-31.0); MEAN CORPUSCULAR HGB CONC 32.3 g/dl (33.0-37.0); MEAN PLATELET VOLUME 8.9 fl (9.6-12.3); MONO # 1.1 10*3/uL (0.1-1.0); MONO % 8.4 % (3.0-9.0); NEUT # 10.4 10*3/uL (2.3-7.9); NEUT % 81.4 % (47.0-73.0); PLATELET COUNT AUTOMATED 277 10*3/uL (130-400); RED BLOOD COUNT 2.23 10*6/uL (4.10-5.10); RED CELL DISTRI WIDTH 12.9 % (0-14.5); WHITE BLOOD COUNT 12.8 10*3/uL (4.8-10.8)
[2020-11-26 15:01] LABS: BASO % 0.1 % (0.0-1.0); EOS # 0.1 10*3/uL (0.0-0.4); EOS % 0.7 % (1.0-4.0); HEMATOCRIT 24.4 % (37.0-47.0); LYMPH # 1.5 10*3/uL (1.3-4.4); LYMPH % 10.7 % (27.0-41.0); MEAN CELL VOLUME 98.8 fl (81.0-99.0); MEAN CORPUSCULAR HGB 31.2 pg (27.0-31.0); MEAN CORPUSCULAR HGB CONC 31.6 g/dl (33.0-37.0); MEAN PLATELET VOLUME 9.3 fl (9.6-12.3); MONO # 0.9 10*3/uL (0.1-1.0); MONO % 6.7 % (3.0-9.0); NEUT # 11.3 10*3/uL (2.3-7.9); NEUT % 80.7 % (47.0-73.0); PLATELET COUNT AUTOMATED 278 10*3/uL (130-400); RED BLOOD COUNT 2.47 10*6/uL (4.10-5.10); RED CELL DISTRI WIDTH 12.8 % (0-14.5)
[2020-11-26 18:19] LABS: HEMATOCRIT 21.8 % (37.0-47.0); MEAN CELL VOLUME 99.1 fl (81.0-99.0); MEAN CORPUSCULAR HGB 31.4 pg (27.0-31.0); MEAN CORPUSCULAR HGB CONC 31.7 g/dl (33.0-37.0); MEAN PLATELET VOLUME 9.1 fl (9.6-12.3); PLATELET COUNT AUTOMATED 267 10*3/uL (130-400); RED CELL DISTRI WIDTH 12.9 % (0-14.5); WHITE BLOOD COUNT 12.8 10*3/uL (4.8-10.8)
[2020-11-26 18:46] LABS: PLATELET SUFFICIENCY NORMAL (NORMAL); TOTAL CELLS COUNTED 100 #CELLS
[2020-11-27] VITALS (99 sets, daily range): BP systolic 81–159; BP diastolic 30–77
[2020-11-27 06:42] LABS: ALBUMIN 1.6 gm/dl (3.1-4.5); CREATININE 2.23 mg/dL (0.55-1.02); POTASSIUM 3.4 mmol/L (3.5-5.1); TOTAL PROTEIN 5.4 gm/dL (6.4-8.2)
[2020-11-27 06:47] LABS: BASO % 0.3 % (0.0-1.0); EOS # 0.1 10*3/uL (0.0-0.4); EOS % 1.2 % (1.0-4.0); HEMATOCRIT 27.4 % (37.0-47.0); LYMPH # 1.1 10*3/uL (1.3-4.4); LYMPH % 9.2 % (27.0-41.0); MEAN CELL VOLUME 96.1 fl (81.0-99.0); MEAN CORPUSCULAR HGB 31.2 pg (27.0-31.0); MEAN CORPUSCULAR HGB CONC 32.5 g/dl (33.0-37.0); MEAN PLATELET VOLUME 9.3 fl (9.6-12.3); MONO # 0.6 10*3/uL (0.1-1.0); MONO % 5.2 % (3.0-9.0); NEUT # 9.6 10*3/uL (2.3-7.9); NEUT % 82.8 % (47.0-73.0); PLATELET COUNT AUTOMATED 260 10*3/uL (130-400); RED BLOOD COUNT 2.85 10*6/uL (4.10-5.10); RED CELL DISTRI WIDTH 13.4 % (0-14.5); WHITE BLOOD COUNT 11.6 10*3/uL (4.8-10.8)
[2020-11-27 16:15] LABS: BASO % 0.2 % (0.0-1.0); EOS # 0.2 10*3/uL (0.0-0.4); EOS % 1.5 % (1.0-4.0); HEMATOCRIT 28.4 % (37.0-47.0); LYMPH % 9.6 % (27.0-41.0); MEAN CELL VOLUME 95.9 fl (81.0-99.0); MEAN CORPUSCULAR HGB 31.1 pg (27.0-31.0); MEAN CORPUSCULAR HGB CONC 32.4 g/dl (33.0-37.0); MEAN PLATELET VOLUME 8.9 fl (9.6-12.3); MONO # 0.9 10*3/uL (0.1-1.0); MONO % 8.7 % (3.0-9.0); NEUT # 7.9 10*3/uL (2.3-7.9); NEUT % 78.7 % (47.0-73.0); PLATELET COUNT AUTOMATED 255 10*3/uL (130-400); RED BLOOD COUNT 2.96 10*6/uL (4.10-5.10); RED CELL DISTRI WIDTH 13.8 % (0-14.5)
[2020-11-28] VITALS (87 sets, daily range): BP systolic 81–130; BP diastolic 32–77
[2020-11-28 05:40] LABS: ALBUMIN 1.6 gm/dl (3.1-4.5); CREATININE 2.16 mg/dL (0.55-1.02); POTASSIUM 3.9 mmol/L (3.5-5.1); TOTAL PROTEIN 5.7 gm/dL (6.4-8.2)
[2020-11-28 06:05] LABS: BASO % 0.2 % (0.0-1.0); EOS # 0.2 10*3/uL (0.0-0.4); EOS % 1.8 % (1.0-4.0); HEMATOCRIT 27.1 % (37.0-47.0); LYMPH # 0.9 10*3/uL (1.3-4.4); MEAN CELL VOLUME 96.1 fl (81.0-99.0); MEAN CORPUSCULAR HGB 31.2 pg (27.0-31.0); MEAN CORPUSCULAR HGB CONC 32.5 g/dl (33.0-37.0); MEAN PLATELET VOLUME 9.3 fl (9.6-12.3); MONO % 9.6 % (3.0-9.0); NEUT % 77.2 % (47.0-73.0); PLATELET COUNT AUTOMATED 309 10*3/uL (130-400); RED BLOOD COUNT 2.82 10*6/uL (4.10-5.10); RED CELL DISTRI WIDTH 13.7 % (0-14.5); WHITE BLOOD COUNT 10.4 10*3/uL (4.8-10.8)
[2020-11-28 10:18] LABS: BILIRUBIN Negative (Negative); BLOOD Negative (Negative); CLARITY Clear (Clear); COLOR Yellow (Yellow); GLUCOSE Negative (Negative); KETONE Negative (Negative); LEUKO ESTERASE Negative (Negative); NITRITE Negative (Negative); UROBILINOGEN 0.2 E.U./dl (0.0-1.0)
[2020-11-28 10:30] LABS: URINE CREATININE RANDOM 26.1 mg/dL
[2020-11-28 11:01] LABS: MUCOUS TRACE; YEAST 1+
[2020-11-29] VITALS (96 sets, daily range): BP systolic 71–122; BP diastolic 25–88
[2020-11-29 05:50] LABS: ALBUMIN 1.5 gm/dl (3.1-4.5); CREATININE 2.05 mg/dL (0.55-1.02); POTASSIUM 3.9 mmol/L (3.5-5.1); TOTAL PROTEIN 5.6 gm/dL (6.4-8.2)
[2020-11-29 06:43] LABS: HEMATOCRIT 26.9 % (37.0-47.0); MEAN CORPUSCULAR HGB 31.1 pg (27.0-31.0); MEAN CORPUSCULAR HGB CONC 30.9 g/dl (33.0-37.0); MEAN PLATELET VOLUME 9.2 fl (9.6-12.3); PLATELET COUNT AUTOMATED 293 10*3/uL (130-400); RED BLOOD COUNT 2.67 10*6/uL (4.10-5.10); RED CELL DISTRI WIDTH 13.9 % (0-14.5); WHITE BLOOD COUNT 8.8 10*3/uL (4.8-10.8)
[2020-11-29 06:45] LABS: MEAN CELL VOLUME 100.7 fl (81.0-99.0)
[2020-11-29 07:49] LABS: TOTAL CELLS COUNTED 100 #CELLS
[2020-11-29 07:50] LABS: PLATELET SUFFICIENCY NORMAL (NORMAL)
[2020-11-29 16:42] LABS: ABG BASE EXCESS 1.8 mmol/L (-2.0-2.0); ARTERIAL BLOOD GAS PH 7.429 (7.35-7.45); ARTERIAL BLOOD GAS PO2 95.8 (80-90)
[2020-11-30] VITALS (72 sets, daily range): BP systolic 82–126; BP diastolic 23–51
[2020-11-30 05:08] LABS: ALBUMIN 1.5 gm/dl (3.1-4.5); CREATININE 2.05 mg/dL (0.55-1.02); POTASSIUM 3.8 mmol/L (3.5-5.1); TOTAL PROTEIN 5.8 gm/dL (6.4-8.2)
[2020-11-30 06:18] LABS: HEMATOCRIT 26.7 % (37.0-47.0); MEAN CELL VOLUME 99.6 fl (81.0-99.0); MEAN CORPUSCULAR HGB CONC 31.1 g/dl (33.0-37.0); MEAN PLATELET VOLUME 9.2 fl (9.6-12.3); PLATELET COUNT AUTOMATED 345 10*3/uL (130-400); RED BLOOD COUNT 2.68 10*6/uL (4.10-5.10); RED CELL DISTRI WIDTH 13.7 % (0-14.5); WHITE BLOOD COUNT 8.4 10*3/uL (4.8-10.8)
[2020-11-30 07:26] LABS: BASOPHILS 1 % (0-1); PLASMA CELL 1 % (0-0); PLATELET SUFFICIENCY NORMAL (NORMAL); TOTAL CELLS COUNTED 100 #CELLS
[2020-12-01] VITALS: BP 107/46
[2020-12-01 04:00] VITALS: BP 97/38
[2020-12-01 05:32] LABS: ALBUMIN 1.9 gm/dl (3.1-4.5); CREATININE 1.9 mg/dL (0.55-1.02); POTASSIUM 3.8 mmol/L (3.5-5.1); TOTAL PROTEIN 6.2 gm/dL (6.4-8.2)
[2020-12-01 06:18] LABS: HEMATOCRIT 26.7 % (37.0-47.0); MEAN CELL VOLUME 101.5 fl (81.0-99.0); MEAN CORPUSCULAR HGB 30.8 pg (27.0-31.0); MEAN CORPUSCULAR HGB CONC 30.3 g/dl (33.0-37.0); MEAN PLATELET VOLUME 9.2 fl (9.6-12.3); PLATELET COUNT AUTOMATED 334 10*3/uL (130-400); RED BLOOD COUNT 2.63 10*6/uL (4.10-5.10); RED CELL DISTRI WIDTH 13.3 % (0-14.5); WHITE BLOOD COUNT 7.7 10*3/uL (4.8-10.8)
[2020-12-01 07:31] LABS: ATYPICAL LYMPHS 2 % (0-0); PLATELET SUFFICIENCY NORMAL (NORMAL); TOTAL CELLS COUNTED 100 #CELLS
[2020-12-01 08:00] VITALS: BP 104/52
[2020-12-01 12:00] VITALS: BP 94/49
[2020-12-01 16:00] VITALS: BP 104/59
[2020-12-01 20:00] VITALS: BP 104/38
[2020-12-02] VITALS: BP 106/49
[2020-12-02 08:00] VITALS: BP 106/51
[2020-12-02 09:25] LABS: ALBUMIN 2.1 gm/dl (3.1-4.5); CREATININE 2.18 mg/dL (0.55-1.02); POTASSIUM 4.6 mmol/L (3.5-5.1); TOTAL PROTEIN 6.6 gm/dL (6.4-8.2)
[2020-12-02 12:00] VITALS: BP 113/48
[2020-12-02 16:00] VITALS: BP 99/39
[2020-12-02 20:00] VITALS: BP 99/37
[2020-12-03] VITALS: BP 98/50
[2020-12-03 04:00] VITALS: BP 112/63
[2020-12-03 04:57] LABS: ALBUMIN 2.2 gm/dl (3.1-4.5); CREATININE 2.42 mg/dL (0.55-1.02); POTASSIUM 4.6 mmol/L (3.5-5.1); TOTAL PROTEIN 6.7 gm/dL (6.4-8.2)
[2020-12-03 06:11] LABS: HEMATOCRIT 27.8 % (37.0-47.0); MEAN CORPUSCULAR HGB 30.6 pg (27.0-31.0); MEAN CORPUSCULAR HGB CONC 30.6 g/dl (33.0-37.0); MEAN PLATELET VOLUME 10.1 fl (9.6-12.3); PLATELET COUNT AUTOMATED 413 10*3/uL (130-400); RED BLOOD COUNT 2.78 10*6/uL (4.10-5.10); RED CELL DISTRI WIDTH 13.1 % (0-14.5); WHITE BLOOD COUNT 10.4 10*3/uL (4.8-10.8)
[2020-12-03 07:03] LABS: TOTAL CELLS COUNTED 100 #CELLS
[2020-12-03 07:04] LABS: PLATELET SUFFICIENCY HIGH (NORMAL)
[2020-12-03 07:05] LABS: POLYCHROMASIA SLIGHT
[2020-12-03 08:00] VITALS: BP 96/43
[2020-12-03] MEDS ORDERED: LEVOFLOXAC750 MG/150 IV (10:50)
[2020-12-03] MEDS ORDERED: METOCLOPRAMIDE10 M1 PO (10:50)
[2020-12-03] MEDS ORDERED: Ipratropium Brom3 ML NEB (10:50)
[2020-12-03] MEDS ORDERED: METRONIDAZ500 MG/100 IV (10:50)
[2020-12-03] MEDS ORDERED: Duragesic 50 M50 MCG T (10:50)
[2020-12-03] MEDS ORDERED: Lioresal PO (10:50)
[2020-12-03 12:00] VITALS: BP 94/40
== END 2020-12-03 13:32 | DRG 329 ==
LOC: ED 08:22 → ICCU 12:07 → EDHOLD 12:07 → 4E 12:07 → ICCU 11-24 17:42
PROVIDERS: Emergency Medicine; Hospitalist; Internal Medicine; Psychiatry & Neurology Neurology; Registered Nurse; Social Worker Clinical; Student in an Organized Health Care Education/Training Program; Surgery; ADMIT Family Medicine; ATTEND Family Medicine
PROC: 0D9670Z Drainage of Stomach with Drainage Device, Via Natural or Artificial Opening (ICD-10-PCS; 2020-11-23)
PROC: 5A1955Z Respiratory Ventilation, Greater than 96 Consecutive Hours (ICD-10-PCS; principal; 2020-11-24)
PROC: 0BH17EZ Insertion of Endotracheal Airway into Trachea, Via Natural or Artificial Opening (ICD-10-PCS; 2020-11-24)
PROC: 0DNW0ZZ Release Peritoneum, Open Approach (ICD-10-PCS; 2020-11-24)
PROC: 0DB80ZZ Excision of Small Intestine, Open Approach (ICD-10-PCS; 2020-11-24)
PROC: 02HV33Z Insertion of Infusion Device into Superior Vena Cava, Percutaneous Approach (ICD-10-PCS; 2020-11-24)
PROC: B548ZZA Ultrasonography of Superior Vena Cava, Guidance (ICD-10-PCS; 2020-11-24)
PROC: 30233N1 Transfusion of Nonautologous Red Blood Cells into Peripheral Vein, Percutaneous Approach (ICD-10-PCS; 2020-11-26)
PROC: 0WQF0ZZ Repair Abdominal Wall, Open Approach (ICD-10-PCS; 2020-11-28)
PROC: 5A09357 Assistance with Respiratory Ventilation, Less than 24 Consecutive Hours, Continuous Positive Airway Pressure (ICD-10-PCS; 2020-11-29)
PROC: BD1BYZZ Fluoroscopy of Mouth/Oropharynx using Other Contrast (ICD-10-PCS; 2020-12-01)
PROC: 02HV33Z Insertion of Infusion Device into Superior Vena Cava, Percutaneous Approach (ICD-10-PCS; 2020-12-01)
DX: K56.50 Intestinal adhesions [bands], unspecified as to partial versus complete obstruction (principal); J96.02 Acute respiratory failure with hypercapnia; I50.33 Acute on chronic diastolic (congestive) heart failure; E43 Unspecified severe protein-calorie malnutrition; K65.9 Peritonitis, unspecified; N17.0 Acute kidney failure with tubular necrosis; N18.4 Chronic kidney disease, stage 4 (severe); K55.9 Vascular disorder of intestine, unspecified; K21.9 Gastro-esophageal reflux disease without esophagitis; D53.9 Nutritional anemia, unspecified; Z66 Do not resuscitate; Z51.5 Encounter for palliative care; T37.95XA Adverse effect of unspecified systemic anti-infective and antiparasitic, initial encounter; L27.0 Generalized skin eruption due to drugs and medicaments taken internally; K59.00 Constipation, unspecified; R00.1 Bradycardia, unspecified; Z20.822 Contact with and (suspected) exposure to COVID-19; R14.3 Flatulence; E83.51 Hypocalcemia; F41.9 Anxiety disorder, unspecified; R73.9 Hyperglycemia, unspecified; Y92.89 Other specified places as the place of occurrence of the external cause; Z68.38 Body mass index [BMI] 38.0-38.9, adult; Z88.2 Allergy status to sulfonamides; Z88.8 Allergy status to other drugs, medicaments and biological substances; Z86.73 Personal history of transient ischemic attack (TIA), and cerebral infarction without residual deficits; Z87.891 Personal history of nicotine dependence; Z79.1 Long term (current) use of non-steroidal anti-inflammatories (NSAID); Z79.899 Other long term (current) drug therapy; Z79.51 Long term (current) use of inhaled steroids